=== PATIENT | female | born 1940 | race Caucasian/White ===

== ENCOUNTER 2023-09-15 10:47 | Emergency (ER) | payer BC, SELFPAY ==
[2023-09-15 11:00] VITALS: BP 153/87
[2023-09-15 11:19] VITALS: BMI 20.4
--- NOTE | 2023-09-15 11:51 | ED.GENMED ---
History of Present Illness
General
Chief Complaint: Musculo-Skeletal Complaint
Time Seen by Provider: 09/15/23 11:21
Travel History
Have you had any contact with someone who has COVID-19?: No
Do you have any symptoms of coronavirus? Fever > 100 degrees, chills, cough, shortness of breath, sore throat, loss of taste or smell, muscle aches, or headache?: No
History of Present Illness
History of Present Illness:
83-year-old female with history of A-fib on Eliquis presents to the emergency department for left hip pain this morning. She is getting lots of pain. She is status post bilateral total hip arthroplasty, the left hip was performed greater than 20
years ago. She typically has no issues with this and normally ambulates without assistive devices. Denies any recent falls or trauma. Denies any fevers or chills. No recent dental procedures or invasive surgeries/diagnostics.
Past History
Past History
ED Past Medical History: GERD, HTN, Other (Paroxysmal atrial fibrillation) and Other (History of back pain, dizziness, constipation, frequent UTIs, osteoarthritis, scoliosis, cellulitis, shingles, anxiety)
ED Past Surgical History: Appendectomy, Orthopedic (Bilateral hip replacement), Tonsilectomy and Other (Cataract surgery)
Social History
Tobacco: Former smoker
Alcohol: Occasional
Personal:
Living: with family
Employment: Retired
Family History
Family History: CAD
Review of Systems
Review of Systems
Allergies reviewed?: Yes
All Other Systems: ROS reviewed and negative except as documented in HPI and ROS
Phy Exam
Physical Exam
Physical Exam:
GEN: Well appearing, NAD, WDWN
HEENT: Oral mucosa moist, no scleral icterus
Cardiac: Regular rate
Lung: No respiratory distress, no tachypnea
MSK: No gross deformity or injuries. Left hip range of motion is normal. There is some pain to the greater trochanter with palpation. No crepitus or pain with passive range of motion
Skin: Good color, no pallor or jaundice, no rashes
Neuro: AO x3, moves all extremities freely
Psych: Calm, cooperative
Course
Orders/Labs/Results
Orders:
Orders
09/15/23 11:19
Hip, Left 2-3 Views [CR Hip - LT w/wo Pel 2-3 Vw*] Urgent
Comment:
Reason For Exam: pain
Include a pelvis x-ray?: Yes
09/15/23 11:40
Acetaminophen [Tylenol] 1,000 mg PO NOW STA
Tramadol HCl [Ultram] 25 mg PO NOW STA
Vital Signs
Initial and Last Documented VS:
Initial Vital Signs
Temp Pulse Resp BP Pulse Ox
97.8 F 63 16 153/87 98
09/15/23 11:00 09/15/23 11:00 09/15/23 11:00 09/15/23 11:00 09/15/23 11:00
Last Documented Vital Signs
Temp Pulse Resp BP Pulse Ox
97.8 F 63 16 153/87 98
09/15/23 11:00 09/15/23 11:00 09/15/23 11:00 09/15/23 11:00 09/15/23 11:00
MDM/Problems Addressed
MDM/Problems Addressed:
No clinical signs of septic arthritis. The x-rays are unremarkable. She does have some reproducible tenderness to the left greater trochanter suggesting bursitis could be an etiology. Patient has A-fib and takes Eliquis p.o. cannot be prescribed
NSAIDs, medication I recommend patient Ortho follow-up
*Critical Care Note
Total Time (30-74mins, 75-104mins- exclusive of procedures): Not Applicable
ED Attending Note
-
Portions of this chart may have been created with voice recognition software.� Occasional wrong word or��sound alike� substitutions may have occurred due to the inherent limitations of voice recognition software.
Discharge Plan
Departure
Patient Disposition: Home (Routine Discharge)
Date of Disposition: 09/15/23
Time of Disposition: 12:59
Patient with high blood pressure during this ER visit?: No
Discharge Problem:
Acute pain of left hip
Instructions: Hip Pain (DC)
Prescriptions:
New
tramadol 25 mg tablet
25 mg PO Q6H PRN (Reason: Pain) Qty: 8 0RF
No Action
aluminum hydrox-magnesium carb [Acid Gone Antacid] 15 ML suspension
15 ml PO PRN PRN (Reason: pain)
atorvastatin 40 MG tablet
40 mg PO QPM
lisinopril 5 MG tablet
5 mg PO QPM
apixaban [Eliquis] 5 MG tablet
5 mg PO BID
diltiazem HCl 120 MG capsule,extended release 24hr
120 mg PO DAILY
metoprolol succinate 50 MG tablet extended release 24 hr
50 mg PO DAILY Qty: 90 10RF
famotidine [Pepcid] 40 MG tablet
40 mg PO BID Qty: 1 0RF
Referrals:
Bernabe Olguin MD [Family Provider] -
Activity Restrictions/Additional Instructions:
See your orthopedic doctor
Interventions
Interventions:
*Risk Screen - Suicide Last Done: 09/15/23 11:19
*General Assessment Last Done: 09/15/23 11:19
*Neglect/Abuse Screening Last Done: 09/15/23 11:19
ED- Fall Risk Assessment Last Done: 09/15/23 11:19
*ED COVID-19 Vaccine History Last Done: 09/15/23 11:00
*Nursing Disposition Last Done: 09/15/23 13:10
ED-Musculoskeletal Assessment Last Done: 09/15/23 11:19
Discharge Date and Time
Discharge Date/Time: 09/15/23 13:12
[2023-09-15] MEDS: TYLENOL 1000 MG PO (11:58)
[2023-09-15] MEDS: ULTRAM 25 MG PO (11:58)
== END 2023-09-15 13:12 | disposition home or self-care (01) ==
LOC: EMR 10:47
PROVIDERS: EMERGENCY PHYSICIAN Emergency Medicine; FAMILY PHYSICIAN Internal Medicine
DX: M25.552 Pain in left hip (principal)
CPT/HCPCS: 99283; 73502

== ENCOUNTER → 2023-12-25 07:05 | Outpatient (REF) | payer BC, SELFPAY | LOC: DHCBC/DCA 07:05 | PROVIDERS: ATTENDING PHYSICIAN Nurse Practitioner; FAMILY PHYSICIAN Family Medicine | DX: R07.89 Other chest pain (principal) | CPT/HCPCS: 78452; 93017; A9500; J2785 ==

== ENCOUNTER 2024-08-06 07:56 | Emergency (ER) | payer BC, SELFPAY ==
[2024-08-06 08:03] VITALS: BP 149/89
--- NOTE | 2024-08-06 08:28 | ED.GENMED ---
History of Present Illness
General
Chief Complaint: Dizziness
Source: patient and spouse
Exam Limitations: none
Time Seen by Provider: 08/06/24 08:21
Nursing documentation reviewed up to this point in time: agreed with
History of Present Illness
History of Present Illness:
84-year-old female past medical history of A-fib currently on Eliquis, hypertension, pacemaker presenting to the emergency department today with concerns of a tingling sensation of the right side of her face and also her right hand that occurred 1
hour prior to arrival. Symptoms have since been improving. She also had associated nausea and lightheadedness. Did not pass out. Denies any chest pain shortness of breath or palpitations.
Past History
Past History
ED Past Medical History: GERD, HTN, Other (Paroxysmal atrial fibrillation) and Other (History of back pain, dizziness, constipation, frequent UTIs, osteoarthritis, scoliosis, cellulitis, shingles, anxiety)
ED Past Surgical History: Appendectomy, Orthopedic (Bilateral hip replacement), Tonsilectomy and Other (Cataract surgery)
Social History
Tobacco: Former smoker
Alcohol: Occasional
Personal:
Living: with family
Employment: Retired
Family History
Family History: CAD
Review of Systems
Review of Systems
Allergies reviewed?: Yes
All Other Systems: ROS reviewed and negative except as documented in HPI and ROS
Phy Exam
Physical Exam
Physical Exam:
GENERAL: Alert , in no apparent distress
EYE: pupils equal and reactive
NECK: Supple, no significant adenopathy.
ENT: Patient claims to have slightly less sensation to the right side of face compared to the left otherwise no cranial nerve findings o/p clr, mmm.
CARDIAC: Regular rate and rhythm .
LUNGS: Clear breath sounds bilaterally, no acute respiratory distress, no wheezes/rales/rhonchi
ABDOMEN: Soft, without focal tenderness, no r/g, no cvat
NEUROLOGICAL: Alert and oriented, no focal neuro deficits 5 out of 5 upper and lower extremity strength normal sensation with palpating bilaterally.
SKIN: Warm and dry, skin intact.
MUSCULOSKELETAL: No edema, well perfused.
PSYCH: Normal and appropriate interaction.
Course
Orders/Labs/Results
Orders:
Orders
08/06/24 08:27
Electrocardiogram (*1) Stat
Reason for Study: Other
Other Reason for Exam: neuro symptoms
CT Head W/o Iv Contrast Urgent
Comment:
Reason For Exam: right facial/right hand tingling
Bedside Glucose- Treatment ONCE
Cardiac Monitoring- Treatment ONCE
EKG- Treatment ONCE
08/06/24 09:10
Interrogate Pacemaker- Treatment ONCE
08/06/24 09:16
Cardiovascular Evaluation Urgent
Comment: ADD ON
Complete Blood Count/With Diff Urgent
Comprehensive Metabolic Panel Urgent
PTT Urgent
08/06/24 10:27
CT Head & Neck Angio W/wo IV Urgent
Comment:
Reason For Exam: Right facuial tingling/right hand now resolved rec
08/06/24 10:29
Add On- LAB Urgent
Tests Added?: lipid profile
08/06/24 11:39
Diphenhydramine [Benadryl] 25 mg IV NOW STA
Hydrocortisone Sod Succinate [Solu-Cortef] 200 mg IV NOW STA
Abnormal Lab Results
08/06/24
09:16
MCH 31.9 H pg
(27.0-31.0)
Lymphocytes % 15.7 L %
(20.5-51.1)
BUN 24 H mg/dl
(7-17)
08/06/24 09:16
08/06/24 09:16
Vital Signs
Initial and Last Documented VS:
Initial Vital Signs
Temp Pulse Resp BP Pulse Ox
98.5 F 68 18 149/89 100
08/06/24 08:03 08/06/24 08:03 08/06/24 08:03 08/06/24 08:03 08/06/24 08:03
Last Documented Vital Signs
Temp Pulse Resp BP Pulse Ox
98.5 F 60 12 152/86 98
08/06/24 08:03 08/06/24 12:46 08/06/24 12:46 08/06/24 12:46 08/06/24 12:46
MDM/Problems Addressed
MDM/Problems Addressed:
84-year-old female presenting to the emergency department today with concerns of a tingling sensation to the right side of her face also to the right hand. The hand is back to normal there is still some very slight ulcer sensation to the right side
of the face. Denies similar in the past. No ongoing nausea or lightheadedness. Vital signs are normal on arrival. Symptoms fully resolved while here. Vital signs normal throughout stay no additional concerns otherwise. CT without emergent
findings Case discussed with Yumiko that recommended CT angiogram this did not show emergent findings. 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 This
was thoroughly discussed with the patient who was very well-appearing at reassessment will follow-up closely and strict return precautions were given.
*Critical Care Note
Total Time (30-74mins, 75-104mins- exclusive of procedures): Not Applicable
ED Attending Note
-
Portions of this chart may have been created with voice recognition software.� Occasional wrong word or��sound alike� substitutions may have occurred due to the inherent limitations of voice recognition software.
Discharge Plan
Departure
Patient Disposition: Home (Routine Discharge)
Date of Disposition: 08/06/24
Time of Disposition: 14:40
Patient with high blood pressure during this ER visit?: No
Condition: Good
Covid-19: Not Applicable
Discharge Problem:
Paresthesia
Prescriptions:
No Action
aluminum hydrox-magnesium carb [Acid Gone Antacid] 15 ML suspension
15 ml PO PRN PRN (Reason: pain)
atorvastatin 40 MG tablet
40 mg PO QPM
lisinopril 5 MG tablet
5 mg PO QPM
apixaban [Eliquis] 5 MG tablet
5 mg PO BID
diltiazem HCl 120 MG capsule,extended release 24hr
120 mg PO DAILY
metoprolol succinate 50 MG tablet extended release 24 hr
50 mg PO DAILY Qty: 90 10RF
famotidine [Pepcid] 40 MG tablet
40 mg PO BID Qty: 1 0RF
tramadol 50 mg tablet
50 mg PO Q8H PRN (Reason: Pain) Qty: 8 0RF
Referrals:
Freddy Olguin MD [Family Provider] -
Samuel Boyle MD [Active] - Follow up in 10 days
Activity Restrictions/Additional Instructions:
You came to the emergency department today with concerns of paresthesias to your face and hand. Here get a reassuring assessment with reassuring CT angiogram as well as CT head. Please feel closely with your primary care doctor and neurology. You
may need an MRI as an outpatient as well. Return for any worsening, new or concerning symptoms.
Interventions
Interventions:
*Risk Screen - Suicide Last Done: 08/06/24 08:03
*General Assessment Last Done: 08/06/24 08:03
*Neglect/Abuse Screening Last Done: 08/06/24 08:03
ED- Neurological Assessment Last Done: 08/06/24 09:15
Discharge Date and Time
Print Language: UPPER [place]BI[place]
[2024-08-06 09:17] VITALS: BP 153/76
[2024-08-06 09:28] LABS: % Basophils 0.6 % (0-2); % Eosinophils 1.6 % (0-6); % Immature Granulocytes 0.5 % (0-0.5); % Lymphocytes 15.7 % (20.5-51.1); % Monocytes 7.7 % (1.7-9.3); % Neutrophils 73.9 % (42.2-75.2); Absolute Basophils 0.1 10^3/uL (0-0.2); Absolute Eosinophils 0.1 10^3/uL (0-0.7); Absolute Lymphocytes 1.3 10^3/uL (1.2-3.4); Absolute Monocytes 0.6 10^3/uL (0.1-0.6); Absolute Neutrophils 6.2 10^3/uL (1.4-6.5); Hematocrit 40.6 % (37.0-47.0); Hemoglobin 13.4 g/dL (12.0-16.0); Mean Corpuscular Hgb 31.9 pg (27.0-31.0); Mean Corpuscular Volume 96.7 fL (81.0-99.0); Mean Platelet Volume 9.1 fL (7.4-10.4); Nucleated Red Blood Cells % 0 %; Platelet Count 203 10^3/uL (130-400); Red Cell Dist. Width 12.5 % (11.5-14.5); White Blood Cell Count 8.3 10^3/uL (4.8-10.8)
[2024-08-06 09:37] VITALS: BP 153/73
[2024-08-06 09:37] LABS: APTT 26.2 Sec (23.4-35.0)
[2024-08-06 09:41] LABS: ALT (SGPT) 35 U/L (0-35); AST (SGOT) 36 U/L (14-36); Albumin 4.6 g/dl (3.5-5.0); Alkaline Phosphatase 116 U/L (38-126); Blood Urea Nitrogen 24 mg/dl (7-17); Calcium 9.1 mg/dl (8.4-10.2); Carbon Dioxide 28 mmol/L (22-30); Chloride 99 mmol/L (98-107); Glucose 96 mg/dl (70-99); Potassium 4.3 mmol/L (3.5-5.1); Sodium 135 mmol/L (135-145); Total Bilirubin 0.6 mg/dl (0.2-1.3); Total Protein 7.3 g/dl (6.3-8.2); eGFR > 60.00
[2024-08-06 10:00] VITALS: BP 141/75
[2024-08-06 10:47] LABS: HDL Cholesterol 56 mg/dl; Total Cholesterol 141 mg/dl (50-199)
[2024-08-06 10:53] LABS: LDL Cholesterol, Calculated 67 mg/dl; Triglyceride 92 mg/dl (10-149); Very Low Density Lipoprotein 18 mg/dl (0-30)
[2024-08-06 11:00] VITALS: BP 143/72
[2024-08-06] MEDS: SOLU-CORTEF 200 MG IV (12:41)
[2024-08-06] MEDS: BENADRYL 25 MG IV (12:41)
[2024-08-06 12:46] VITALS: BP 152/86
== END 2024-08-06 15:00 | disposition home or self-care (01) ==
LOC: EMR 07:56
PROVIDERS: Physician Assistant; EMERGENCY PHYSICIAN Emergency Medicine; FAMILY PHYSICIAN Family Medicine
DX: R20.2 Paresthesia of skin (principal); I48.91 Unspecified atrial fibrillation; I10 Essential (primary) hypertension; K21.9 Gastro-esophageal reflux disease without esophagitis; M19.90 Unspecified osteoarthritis, unspecified site; Z79.01 Long term (current) use of anticoagulants; Z82.49 Family history of ischemic heart disease and other diseases of the circulatory system; Z87.440 Personal history of urinary (tract) infections; Z87.891 Personal history of nicotine dependence; Z90.49 Acquired absence of other specified parts of digestive tract; Z95.0 Presence of cardiac pacemaker; Z96.643 Presence of artificial hip joint, bilateral
CPT/HCPCS: 99284; 70450; 70496; 70498; 80053; 80061; 85025; 85730; 93005; Q9967

== ENCOUNTER → 2024-10-17 09:02 | Outpatient (REF) | payer BC, SELFPAY | LOC: HWRCS 09:02 | PROVIDERS: ATTENDING PHYSICIAN Internal Medicine Cardiovascular Disease; FAMILY PHYSICIAN Family Medicine | DX: I48.0 Paroxysmal atrial fibrillation (principal) | CPT/HCPCS: 93306 ==

== ENCOUNTER 2025-05-21 12:53 | Emergency (ER) | payer BC, SELFPAY ==
[2025-05-21 12:58] VITALS: BP 132/62
--- NOTE | 2025-05-21 14:24 | ED.GENMED ---
History of Present Illness
General
Chief Complaint: Head Injury
Source: patient
Exam Limitations: none
Time Seen by Provider: 05/21/25 13:59
Nursing documentation reviewed up to this point in time: agreed with
History of Present Illness
History of Present Illness:
84-year-old female with a past medical history as noted significant for A-fib on Elichris who presents to the emergency room for evaluation after head trauma. Patient reports that she was getting something out of the refrigerator; she says that she
keeps a heavy platter on top of the refrigerator and when she opened the door the platter fell on her head. It hit her on the top of the head. The bladder did break but she did not sustain any cuts. She did not pass out. She did not fall to the
ground. She did not sustain any other injuries. She states she had a minor bump on her head but it seems of gone down with some ice. She says she has some soreness to the touch but no significant headache. She denies any neck pain. Denies any
other injuries. She says that she spoke with her primary doctor about the episode and he recommended she come to the ER to have a CT scan.
Past History
Past History
ED Past Medical History: GERD, HTN, Other (Paroxysmal atrial fibrillation) and Other (History of back pain, dizziness, constipation, frequent UTIs, osteoarthritis, scoliosis, cellulitis, shingles, anxiety)
ED Past Surgical History: Appendectomy, Orthopedic (Bilateral hip replacement), Tonsilectomy and Other (Cataract surgery)
Social History
Tobacco: Former smoker
Alcohol: Occasional
Personal:
Living: with family
Employment: Retired
Family History
Family History: CAD
Review of Systems
Review of Systems
All Other Systems: ROS reviewed and negative except as documented in HPI and ROS
Respiratory: Denies trouble breathing
Cardiac: Denies chest pain or syncope
ABD/GI: Denies vomiting
Musculoskeletal: Denies neck pain or back pain
Neurological: Denies dizzy or headache
Phy Exam
Physical Exam
Physical Exam:
General: Awake, alert, oriented x3; no acute distress
Head: Normocephalic, very minor right parietal hematoma
Eyes: Conjunctiva normal, EOMI, pupils equal and reactive to light bilaterally
Throat: Airway intact, handling secretions
Neck: Trachea midline, supple without meningismus, no cervical spine tenderness, full range of motion without pain
Lungs: Breathing comfortably with no distress
Heart: Regular rate
Neuro: Cranial nerves grossly intact, speech fluid, motor and sensory grossly intact
Skin: Warm and dry
Extremities: Atraumatic
Scores
Heart Failure Risk
Heart Failure Risk Score: Not Applicable
Heart Score for Chest Pain Patients
STEMI patient?: Not applicable
Withdrawal Assessment of Alcohol
Withdrawal Assessment Completed?: Not applicable
Course
Orders/Labs/Results
Orders:
Orders
05/21/25 14:00
CT Head W/o Iv Contrast Urgent
Comment:
Reason For Exam: occipital head trauma on Eliquis
Vital Signs
Initial and Last Documented VS:
Initial Vital Signs
Temp Pulse Resp BP Pulse Ox
36.6 C 71 18 132/62 98
05/21/25 12:58 05/21/25 12:58 05/21/25 12:58 05/21/25 12:58 05/21/25 12:58
Last Documented Vital Signs
Temp Pulse Resp BP Pulse Ox
36.6 C 71 18 132/62 98
05/21/25 12:58 05/21/25 12:58 05/21/25 12:58 05/21/25 12:58 05/21/25 14:29
MDM/Problems Addressed
Differential Diagnosis Includes:
Scalp contusion, brain bleed, concussion
MDM/Problems Addressed:
84-year-old female who is on Eliquis for A-fib presents to the ER sent in by her primary doctor after a head trauma today. She says that a heavy platter fell on top of her head. She had a bump on her head but no other serious injuries. She did
not fall and did not pass out. She says that she feels well aside from some soreness of her head to the touch. Denies any neck pain. Vitals and exam are as above. Check CT of the head. Will reassess at the above.
CT head no acute abnormalities. Patient clinically stable on reassessment. Stable for discharge.
Chronic conditions affecting care:
A-fib on Eliquis complicates head trauma
*Radiology
Radiology exam reviewed: radiology read reviewed
*Pulse Oximetry
SaO2: 98
Oxygen Mode of Delivery: Room air
Patient hypoxic: no (98%)
*Critical Care Note
Total Time (30-74mins, 75-104mins- exclusive of procedures): Not Applicable
Data Reviewed
Source: patient and records
ED Attending Note
-
Portions of this chart may have been created with voice recognition software.� Occasional wrong word or��sound alike� substitutions may have occurred due to the inherent limitations of voice recognition software.
Discharge Plan
Departure
Patient Disposition: Home (Routine Discharge)
Date of Disposition: 05/21/25
Time of Disposition: 17:12
Patient with high blood pressure during this ER visit?: No
Discharge Problem:
Scalp hematoma
Instructions: Hematoma
Prescriptions:
No Action
aluminum hydrox-magnesium carb [Acid Gone Antacid] 15 ML suspension
15 ml PO PRN PRN (Reason: pain)
atorvastatin 40 MG tablet
40 mg PO QPM
lisinopril 5 MG tablet
5 mg PO QPM
apixaban [Eliquis] 5 MG tablet
5 mg PO BID
diltiazem HCl 120 MG capsule,extended release 24hr
120 mg PO DAILY
metoprolol succinate 50 MG tablet extended release 24 hr
50 mg PO DAILY Qty: 90 10RF
famotidine [Pepcid] 40 MG tablet
40 mg PO BID Qty: 1 0RF
tramadol 50 mg tablet
50 mg PO Q8H PRN (Reason: Pain) Qty: 8 0RF
Referrals:
Freddy Olguin MD [Family Provider, [facility]] - Follow up in 1 week
Activity Restrictions/Additional Instructions:
Thank you for visiting the Emergency Department at [facility].
1. Please schedule a follow up appointment as directed. Call first thing tomorrow morning to make an appointment.
2. If indicated, please take your medications as instructed and indicated on discharge paperwork.
3. If any of your symptoms do not improve, or persist, or become more severe within 6-12 hours, please return to the emergency department for further care.
4. Please return to the emergency department if you develop a headache, neck pain/stiffness, fever greater than 100.4F, chest pain, shortness of breath, persistent nausea, vomiting, slurred speech, difficulty walking, numbness/tingling, weakness,
signs of infection or any other symptoms that are worrisome to you.
Please call [phone] if you have any questions.
Interventions
Interventions:
*Risk Screen - Suicide Last Done: 05/21/25 12:58
*General Assessment Last Done: 05/21/25 13:03
*Neglect/Abuse Screening Last Done: 05/21/25 12:58
*ED- Fall Risk Assessment Last Done: 05/21/25 13:03
*ED COVID-19 Vaccine History Last Done: 05/21/25 13:03
*ED Influenza Vaccine History Last Done: 05/21/25 13:03
ED- Neurological Assessment Last Done: 05/21/25 14:36
ED-Skin Assessment Last Done: 05/21/25 14:36
Discharge Date and Time
Print Language: [place]
[2025-05-21 14:33] VITALS: BMI 20.3
== END 2025-05-21 17:32 | disposition home or self-care (01) ==
LOC: EMR 12:53
PROVIDERS: EMERGENCY PHYSICIAN Emergency Medicine; FAMILY PHYSICIAN Family Medicine
DX: S00.03XA Contusion of scalp, initial encounter (principal); W20.8XXA Other cause of strike by thrown, projected or falling object, initial encounter; I10 Essential (primary) hypertension; I48.91 Unspecified atrial fibrillation; Z79.01 Long term (current) use of anticoagulants; Z87.891 Personal history of nicotine dependence; Z90.49 Acquired absence of other specified parts of digestive tract
CPT/HCPCS: 99284; 70450